=== PATIENT | female | born 1945 | race Caucasian/White ===

== ENCOUNTER 2023-08-01 22:24 | Emergency (ER) | payer MEDICARE ==
--- NOTE | 2023-08-01 22:49 | ED ---
General Adult HPI - General Source: patient Mode of arrival: ambulatory Limitations: no limitations <Dann Hu - Last Filed: 08/01/23 22:48> <Guido Thurston - Last Filed: 08/02/23 02:09> - General Stated complaint: high blood pressure Time Seen by Provider: 08/01/23 22:48 - History of Present Illness Initial comments: 78-year-old female presenting with chief complaint of elevated blood pressure. Patient noted yesterday that she had a bad headache and took her blood pressure and it was above 200. She saw her PCP and was started on a new blood pressure medication. Today the blood pressure has been persistently high. As of right now she only has a slight headache no other symptoms (Dann Hu) 78-year-old female presenting to the ED with a chief complaint of hypertension. Patient states has had ongoing issues with hypertension and saw her PCP today. Was previously on Metoprolol 25 mg daily. This was continued as well as she was added on Lisinopril 20 mg daily, and Hydralazine 25 mg twice daily today. Despite taking this medication today still notes that she has high blood pressure prompting presentation to the ED for further evaluation. Patient does note some slight headache however denies chest pain or shortness of breath. No other complaints at this time. (Guido Thurston) - Related Data Allergies Allergy/AdvReac Type Severity Reaction Status Date / Time Penicillins Allergy Rash/Hives Verified 08/01/23 23:19 codeine AdvReac Nausea & Verified 08/01/23 23:19 Vomiting morphine AdvReac Nausea & Verified 08/01/23 23:19 Vomiting Sulfa (Sulfonamide AdvReac Swelling Verified 08/01/23 23:19 Antibiotics) Review of Systems ROS Other: All systems not noted in ROS Statement are negative. <Dann Hu - Last Filed: 08/01/23 22:48> ROS Other: All systems not noted in ROS Statement are negative. <Guido Thurston - Last Filed: 08/02/23 02:09> ROS Statement: Those systems with pertinent positive or pertinent negative responses have been documented in the HPI. General Exam <Dann Hu - Last Filed: 08/01/23 22:48> General appearance: alert, in no apparent distress Eye exam: Present: normal appearance Neck exam: Present: normal inspection Respiratory exam: Present: normal lung sounds bilaterally Cardiovascular Exam: Present: regular rate, normal rhythm GI/Abdominal exam: Present: soft Neurological exam: Present: alert, oriented X3 Skin exam: Present: warm, dry <Guido Thurston - Last Filed: 08/02/23 02:09> - General Exam Comments Initial Comments: Visual Physical Exam Vital signs reviewed General: Well-appearing, nontoxic, no acute distress. Head: Normocephalic, atraumatic Eyes: PERRLA, EOMI ENT: Airway patent Chest: Nonlabored breathing Skin: No visual rash, normal skin tone Neuro: Alert and oriented 3 Musculoskeletal: No gross abnormalities (Dann Hu) Course Vital Signs 08/01/23 08/02/23 08/02/23 23:20 00:33 01:07 Temperature 98.7 F Pulse Rate 79 77 80 Respiratory 16 14 16 Rate Blood Pressure 198/98 213/144 202/90 O2 Sat by Pulse 95 97 95 Oximetry 08/02/23 08/02/23 01:27 02:06 Temperature Pulse Rate 86 92 Respiratory 16 16 Rate Blood Pressure 173/86 181/81 O2 Sat by Pulse 97 Oximetry Medical Decision Making <Dann Hu - Last Filed: 08/01/23 22:48> - Lab Data Result diagrams: 08/02/23 00:45 08/02/23 00:45 <Guido Thurston - Last Filed: 08/02/23 02:09> - Medical Decision Making I performed the quick note portion of this visit, electronically signed Dann Hu PA-C (Dann Hu) Was pt. sent in by a medical professional or institution ([facility]se, MANAGER GENERATION, urgent care, hospital, or senior care...) When possible be specific @ -No Did you speak to anyone other than the patient for history (EMS, parent, family, police, friend...)? What history was obtained from this source @ -No Did you review nursing and triage notes (agree or disagree)? Why? @ -I reviewed and agree with nursing and triage notes Were old charts reviewed (outside hosp., previous admission, EMS record, old EKG, old radiological studies, urgent care reports/EKG's, senior care records)? Report findings @ -No old charts were reviewed Differential Diagnosis (chest pain, altered mental status, abdominal pain women, abdominal pain men, vaginal bleeding, weakness, fever, dyspnea, syncope, headache, dizziness, GI bleed, back pain, seizure, CVA, palpatations, mental health, musculoskeletal)? @ -Differential Chest Pain: Stable Angina, Unstable Angina, STEMI, NSTEMI Aortic Dissection, Pneumothorax, Musculoskeletal, Esophageal Spasm GERD, Cholecystitis, Pancreatitis, Zoster, this is not meant to be an all-inclusive list. EKG interpreted by me (3pts min.). @ -EKG shows a normal sinus rhythm at 60 bpm with nonspecific changes. ID [id number], QRS 93, QT/QTc 304/371. X-rays interpreted by me (1pt min.). @ -None done CT interpreted by me (1pt min.). @ -None done U/S interpreted by me (1pt. min.). @ -None done What testing was considered but not performed or refused? (CT, X-rays, U/S, labs)? Why? @ -None What meds were considered but not given or refused? Why? @ -None Did you discuss the management of the patient with other professionals (professionals i.e. , PA, MANAGER GENERATION, lab, RT, psych nurse, social work instructor, sheep or calf grader, teacher, chief operating officer, case management coordinator)? Give summary @ -No Was smoking cessation discussed for >3mins.? @ -No Was critical care preformed (if so, how long)? @ -No Were there social determinants of health that impacted care today? How? (Homelessness, low income, unemployed, alcoholism, drug addiction, transportation, low edu. Level, literacy, decrease access to med. care, retirement, rehab)? @ -No Was there de-escalation of care discussed even if they declined (Discuss DNR or withdrawal of care, Hospice)? DNR status @ -No What co-morbidities impacted this encounter? (DM, HTN, Smoking, COPD, CAD, Cancer, CVA, ARF, Chemo, Hep., AIDS, mental health diagnosis, sleep apnea, mo rbid obesity)? @ -Hypertension Was patient admitted / discharged? Hospital course, mention meds given and route, prescriptions, significant lab abnormalities, going to OR and other pertinent info. @ -Discharge Laboratory studies reviewed. CBC largely unremarkable. Chemistry panel did show some hypokalemia at 3.1. This was repleted. UA does show some evidence of infection with large leukocyte Estrace, and 65 white blood cells however nitrite s negative. At this time patient is not having any UTI symptoms however does note recent admission at outside hospital secondary to UTI causing altered mental status. Therefore patient provided prescription for Keflex. EKG at this time showed a normal sinus rhythm without acute changes. Vital signs do show some hypertension however otherwise stable. Discharged home in stable condition advised close follow-up with her PCP. Discussed return precautions with patient and family verbalized agreement. Undiagnosed new problem with uncertain prognosis? @ -No Drug Therapy requiring intensive monitoring for toxicity (Heparin, Nitro, Insulin, Cardizem)? @ -No Were any procedures done? @ -No Diagnosis/symptom? @ -Hypertension Acute, or Chronic, or Acute on Chronic? @ -Acute Uncomplicated (without systemic symptoms) or Complicated (systemic symptoms)? @ -Uncomplicated Side effects of treatment? @ -No Exacerbation, Progression, or Severe Exacerbation? @ -No Poses a threat to life or bodily function? How? (Chest pain, [place], [place], pneumonia, PE, COPD, DKA, ARF, appy, cholecystitis, CVA, Diverticulitis, Homicidal, Suicidal, threat to staff... and all critical care pts) @ -No (Guido Thurston) - Lab Data Lab Results 08/02/23 08/02/23 08/02/23 Range/Units 00:45 00:45 00:45 WBC 8.4 (3.8-10.6) k/uL RBC 4.18 (3.80-5.40) m/uL Hgb 12.9 (11.4-16.0) gm/dL Hct 37.8 (34.0-46.0) % MCV 90.3 (80.0-100.0) fL MCH 30.8 (25.0-35.0) pg MCHC 34.1 (31.0-37.0) g/dL RDW 12.2 (11.5-15.5) % Plt Count 265 (150-450) k/uL MPV 7.7 Neutrophils % 67 % Lymphocytes % 20 % Monocytes % 7 % Eosinophils % 2 % Basophils % 1 % Neutrophils # 5.7 (1.3-7.7) k/uL Lymphocytes # 1.7 (1.0-4.8) k/uL Monocytes # 0.6 (0-1.0) k/uL Eosinophils # 0.2 (0-0.7) k/uL Basophils # 0.1 (0-0.2) k/uL Sodium 139 (137-145) mmol/L Potassium 3.1 L (3.5-5.1) mmol/L Chloride 105 (98-107) mmol/L Carbon Dioxide 27 (22-30) mmol/L Anion Gap 7 mmol/L BUN 23 H (7-17) mg/dL Creatinine 0.83 (0.52-1.04) mg/dL Est GFR (CKD-EPI)AfAm 79 (>60 ml/min/1.73 sqM) Est GFR (CKD-EPI)NonAf 69 (>60 ml/min/1.73 sqM) Glucose 92 (74-99) mg/dL Calcium 9.2 (8.4-10.2) mg/dL Total Bilirubin 0.6 (0.2-1.3) mg/dL AST 27 (14-36) U/L ALT 23 (4-34) U/L Alkaline Phosphatase 63 (38-126) U/L Troponin I 0.013 (0.000-0.034) ng/mL Total Protein 6.2 L (6.3-8.2) g/dL Albumin 3.9 (3.5-5.0) g/dL Urine Color Urine Appearance (Clear) Urine pH (5.0-8.0) Ur Specific [place] (1.001-1.035) Urine Protein (Negative) Urine Glucose (UA) (Negative) Urine Ketones (Negative) Urine Blood (Negative) Urine Nitrite (Negative) Urine Bilirubin (Negative) Urine Urobilinogen (<2.0) mg/dL Ur Leukocyte Esterase (Negative) Urine RBC (0-5) /hpf Urine WBC (0-5) /hpf Ur Squamous Epith Cells (0-4) /hpf Urine Bacteria (None) /hpf Urine Mucus (None) /hpf 08/02/23 Range/Units 01:41 WBC (3.8-10.6) k/uL RBC (3.80-5.40) m/uL Hgb (11.4-16.0) gm/dL Hct (34.0-46.0) % MCV (80.0-100.0) fL MCH (25.0-35.0) pg MCHC (31.0-37.0) g/dL RDW (11.5-15.5) % Plt Count (150-450) k/uL MPV Neutrophils % % Lymphocytes % % Monocytes % % Eosinophils % % Basophils % % Neutrophils # (1.3-7.7) k/uL Lymphocytes # (1.0-4.8) k/uL Monocytes # (0-1.0) k/uL Eosinophils # (0-0.7) k/uL Basophils # (0-0.2) k/uL Sodium (137-145) mmol/L Potassium (3.5-5.1) mmol/L Chloride (98-107) mmol/L Carbon Dioxide (22-30) mmol/L Anion Gap mmol/L BUN (7-17) mg/dL Creatinine (0.52-1.04) mg/dL Est GFR (CKD-EPI)AfAm (>60 ml/min/1.73 sqM) Est GFR (CKD-EPI)NonAf (>60 ml/min/1.73 sqM) Glucose (74-99) mg/dL Calcium (8.4-10.2) mg/dL Total Bilirubin (0.2-1.3) mg/dL AST (14-36) U/L ALT (4-34) U/L Alkaline Phosphatase (38-126) U/L Troponin I (0.000-0.034) ng/mL Total Protein (6.3-8.2) g/dL Albumin (3.5-5.0) g/dL Urine Color Colorless Urine Appearance Clear (Clear) Urine pH 6.0 (5.0-8.0) Ur Specific [place] 1.009 (1.001-1.035) Urine Protein Negative (Negative) Urine Glucose (UA) Negative (Negative) Urine Ketones 1+ H (Negative) Urine Blood Trace H (Negative) Urine Nitrite Negative (Negative) Urine Bilirubin Negative (Negative) Urine Urobilinogen <2.0 (<2.0) mg/dL Ur Leukocyte Esterase Large H (Negative) Urine RBC 5 (0-5) /hpf Urine WBC 65 H (0-5) /hpf Ur Squamous Epith Cells 1 (0-4) /hpf Urine Bacteria Rare H (None) /hpf Urine Mucus Rare H (None) /hpf Disposition <Dann Hu - Last Filed: 08/01/23 22:48> Is patient prescribed a controlled substance at d/c from ED?: No Time of Disposition: 02:09 <Guido Thurston - Last Filed: 08/02/23 02:09> Clinical Impression: HTN (hypertension) Disposition: HOME SELF-CARE Condition: Good Additional Instructions: Please return to the Emergency Department if symptoms worsen or any other concerns. Please follow-up with your PCP Referrals: Virginie Conte MD [Primary Care Provider] - 1-2 days
[2023-08-01 23:39] VITALS: TEMP 98.7
[2023-08-02] MEDS: hydrALAZINE HCL 20 MG/ML 1 ML VIAL IVP STA (01:04)
[2023-08-02 01:07] LABS: Basophils # (A) 0.1 k/uL (0-0.2); Basophils % (A) 1 %; Eosinophils # (A) 0.2 k/uL (0-0.7); Eosinophils % (A) 2 %; HCT 37.8 % (34.0-46.0); HGB 12.9 gm/dL (11.4-16.0); Lymphocytes # (A) 1.7 k/uL (1.0-4.8); Lymphocytes % (A) 20 %; MCH 30.8 pg (25.0-35.0); MCHC 34.1 g/dL (31.0-37.0); MCV 90.3 fL (80.0-100.0); Mean Platelet Volume 7.7; Monocytes # (A) 0.6 k/uL (0-1.0); Monocytes % (A) 7 %; Neutrophils # (A) 5.7 k/uL (1.3-7.7); Neutrophils % (A) 67 %; Platelet Count 265 k/uL (150-450); RBC 4.18 m/uL (3.80-5.40); RDW 12.2 % (11.5-15.5); WBC 8.4 k/uL (3.8-10.6)
[2023-08-02 01:26] LABS: ALT 23 U/L (4-34); AST 27 U/L (14-36); African American GFR (CKD) 79 (>60 ml/min/1.73 sqM); Albumin 3.9 g/dL (3.5-5.0); Alkaline Phosphatase 63 U/L (38-126); Anion Gap 7 mmol/L; Blood Urea Nitrogen 23 mg/dL (7-17); Calcium 9.2 mg/dL (8.4-10.2); Carbon Dioxide 27 mmol/L (22-30); Chloride 105 mmol/L (98-107); Glucose 92 mg/dL (74-99); Non-African American GFR(CKD) 69 (>60 ml/min/1.73 sqM); Potassium 3.1 mmol/L (3.5-5.1); Sodium 139 mmol/L (137-145); Total Bilirubin 0.6 mg/dL (0.2-1.3); Total Protein 6.2 g/dL (6.3-8.2)
[2023-08-02 01:29] VITALS: RESP 16
[2023-08-02 01:48] LABS: Appearance,Urine Clear (Clear); Bacteria,Urine Rare /hpf; Bilirubin,Urine Negative (Negative); Blood,Urine Trace (Negative); Color,Urine Colorless; Glucose,Urine (UA) Negative (Negative); Ketones,Urine 1+ (Negative); Leukocyte Esterase,Urine Large (Negative); Mucus,Urine Rare /hpf; Nitrite,Urine Negative (Negative); Protein,Urine Negative (Negative); RBC,Urine 5 /hpf (0-5); Specific Gravity,Urine 1.009 (1.001-1.035); Squamous Epithelial Cell,Urine 1 /hpf (0-4); Urobilinogen,Urine <2.0 mg/dL (<2.0); WBC,Urine 65 /hpf (0-5)
[2023-08-02] MEDS: ACETAMINOPHEN TAB 500 MG TAB PO STA (02:22)
[2023-08-02] MEDS: POTASSIUM CHLORIDE ER 20 MEQ TAB.ER PO STA (02:25)
[2023-08-02] MEDS: LABETALOL 5 MG/ML VIAL MDV IVP STA (02:59)
[2023-08-02 03:54] VITALS: BP 175/90; PULSE 80
== END 2023-08-02 03:31 | disposition home or self-care (01) ==
LOC: EC 22:24
DX: I10 Essential (primary) hypertension (principal); Z88.0 Allergy status to penicillin; Z88.5 Allergy status to narcotic agent; Z88.2 Allergy status to sulfonamides
CPT/HCPCS: 36415; 93005; 80053; 84484; 85025; 81001; 96374; 96375; 99284; J0360; J1920

== ENCOUNTER 2023-08-03 09:54 | Inpatient (IN) | payer MEDICARE, OTHER ==
--- NOTE | 2023-08-03 10:27 | ED ---
Recheck HPI - General Chief Complaint: Recheck/Abnormal Lab/Rx Stated Complaint: Elevated BP Time Seen by Provider: 08/03/23 10:26 Source: patient, RN notes reviewed, old records reviewed Mode of arrival: ambulatory Limitations: no limitations - History of Present Illness Initial Comments: Patient is a 78-year-old female presented to ER with chief complaint of hypertension and headache. Patient recently seen here for similar complaint and received IV medications with improvement of blood pressure. Patient followed up with PCP yesterday and had medication changes. She is currently taking hydralazine 50 mg 3 times a day, lisinopril 25 mg twice daily and metoprolol succinate ER 50 mg once daily. She states last night she took her blood pressure as instructed before going to bed and it was found to be elevated about 180s over 90s. Patient states she was feeling normal at that time. Patient took her blood pressure this morning prior to medications and it was 203/80s. She states she took her medication and waited 40 minutes repeated her blood pressure and it was 230s/100s. Which brought her to the ER. She also endorses a headache that has been going on for a a while. Denies any dizziness, lightheadedness, chest pain, shortness of breath, abdominal pain, peripheral edema. - Related Data Home Medications Medication Instructions Recorded Confirmed Aspirin 81 mg PO DAILY 08/03/23 08/03/23 Cholecalciferol (Vitamin D3) 75 mcg PO DAILY 08/03/23 08/03/23 [Vitamin D3 (3000 Iu)] Cyanocobalamin (Vitamin B-12) 1,000 mcg PO DAILY 08/03/23 08/03/23 [Vitamin B-12] DULoxetine HCL [Cymbalta] 30 mg PO BID 08/03/23 08/03/23 Levothyroxine Sodium [Synthroid] 75 mcg PO DAILY 08/03/23 08/03/23 Metoprolol Succinate (ER) [Toprol 25 mg PO DAILY 08/03/23 08/03/23 Xl] Simvastatin [Zocor] 40 mg PO HS 08/03/23 08/03/23 hydrALAZINE HCL [Apresoline] 50 mg PO TID@0800,1400,1800 08/03/23 08/03/23 lisinopriL [Prinivil] 20 mg PO BID 08/03/23 08/03/23 Previous Rx's Medication Instructions Recorded Nitrofurantoin Monohyd/M-Cryst 100 mg PO Q12HR 5 Days #10 cap 08/03/23 [Macrobid] Allergies Allergy/AdvReac Type Severity Reaction Status Date / Time Penicillins Allergy Rash/Hives Verified 08/03/23 11:50 codeine AdvReac Nausea & Verified 08/03/23 11:50 Vomiting morphine AdvReac Nausea & Verified 08/03/23 11:50 Vomiting Sulfa (Sulfonamide AdvReac Swelling Verified 08/03/23 11:50 Antibiotics) Review of Systems ROS Statement: Those systems with pertinent positive or pertinent negative responses have been documented in the HPI. ROS Other: All systems not noted in ROS Statement are negative. Past Medical History Past Medical History: Hyperlipidemia, Hypertension, No Reported History, Thyroid Disorder History of Any Multi-Drug Resistant Organisms: None Reported Past Surgical History: Bladder Surgery, Cholecystectomy, Hysterectomy, Orthopedic Surgery Past Psychological History: Depression Smoking Status: Never smoker Past Alcohol Use History: Rare Past Drug Use History: None Reported General Exam Limitations: no limitations General appearance: alert, in no apparent distress Head exam: Present: atraumatic, normocephalic, normal inspection Eye exam: Present: normal appearance, PERRL, EOMI. Absent: scleral icterus, conjunctival injection, periorbital swelling Pupils: Present: normal accommodation ENT exam: Present: normal exam, normal oropharynx, mucous membranes moist Neck exam: Present: normal inspection. Absent: tenderness, meningismus, lymphadenopathy Respiratory exam: Present: normal lung sounds bilaterally. Absent: respiratory distress, wheezes, rales, rhonchi, stridor Cardiovascular Exam: Present: regular rate, normal rhythm, normal heart sounds. Absent: systolic murmur, diastolic murmur, rubs, gallop, clicks Extremities exam: Present: normal inspection, full ROM, normal capillary refill. Absent: tenderness, pedal edema, joint swelling, calf tenderness Neurological exam: Present: alert, oriented X3, CN II-XII intact Psychiatric exam: Present: normal affect, normal mood Skin exam: Present: warm, dry, intact, normal color. Absent: rash Course Vital Signs 08/03/23 08/03/23 08/03/23 09:55 10:26 11:26 Temperature 98.6 F Pulse Rate 99 84 Respiratory 18 18 Rate Blood Pressure 184/98 178/93 209/96 O2 Sat by Pulse 95 96 Oximetry 08/03/23 08/03/23 08/03/23 12:40 12:47 13:00 Temperature Pulse Rate 83 80 Respiratory 18 18 Rate Blood Pressure 198/87 198/87 O2 Sat by Pulse 96 96 98 Oximetry 08/03/23 08/03/23 08/03/23 13:30 14:00 15:12 Temperature Pulse Rate 78 80 81 Respiratory 18 18 16 Rate Blood Pressure 212/92 212/97 185/88 O2 Sat by Pulse 98 97 Oximetry 08/03/23 08/03/23 17:32 18:04 Temperature Pulse Rate 84 91 Respiratory 18 16 Rate Blood Pressure 199/91 181/87 O2 Sat by Pulse 96 97 Oximetry - Reevaluation(s) Reevaluation #1: 08/03/23 12:27 Upon reevaluation, results were discussed with patient. Patient's family refused discharge as her BP was elevated. Reevaluation #2: 08/03/23 14:[address] Alanis from [facility] accepted medical admission. Medical Decision Making - Medical Decision Making Was pt. sent in by a medical professional or institution (, PA, DIRECTOR OF CORPORATE SPONSORSHIPS, urgent care, hospital, or long-term...) When possible be specific @ -No Did you speak to anyone other than the patient for history (EMS, parent, family, police, friend...)? What history was obtained from this source @ -No Did you review nursing and triage notes (agree or disagree)? Why? @ -I reviewed and agree with nursing and triage notes Were old charts reviewed (outside hosp., previous admission, EMS record, old EKG, old radiological studies, urgent care reports/EKG's, long-term records)? Report findings @ -Yes I reviewed old charts from 08-02-2023 patient seen here for hypertension. Patient received IV labetalol and hydralazine with improvement of blood pressu re. Differential Diagnosis (chest pain, altered mental status, abdominal pain women, abdominal pain men, vaginal bleeding, weakness, fever, dyspnea, syncope, headache, dizziness, GI bleed, back pain, seizure, CVA, palpatations, mental health, musculoskeletal)? @ -Differential Chest Pain: Stable Angina, Unstable Angina, STEMI, NSTEMI Aortic Dissection, Pneumothorax, Musculoskeletal, Esophageal Spasm GERD, Cholecystitis, Pancreatitis, Zoster, this is not meant to be an all-inclusive list. EKG interpreted by me (3pts min.). @ -As above X-rays interpreted by me (1pt min.). @ -None done CT interpreted by me (1pt min.). @ -CT brain interpreted by me negative for acute process. U/S interpreted by me (1pt. min.). @ -None done What testing was considered but not performed or refused? (CT, X-rays, U/S, labs)? Why? @ -None What meds were considered but not given or refused? Why? @ -None Did you discuss the management of the patient with other professionals (professionals i.e. DrJohn, PA, DIRECTOR OF CORPORATE SPONSORSHIPS, lab, RT, psych nurse, social insurance specialist, parlor chaperone, teacher, radiation officer, case planner)? Give summary @ -Yes, case disucssed with Dr. Alanis who accepts medical admission. Was smoking cessation discussed for >3mins.? @ -No Was critical care preformed (if so, how long)? @ -No Were there social determinants of health that impacted care today? How? (Homelessness, low income, unemployed, alcoholism, drug addiction, transportation, low edu. Level, literacy, decrease access to med. care, half-way, rehab)? @ -No Was there de-escalation of care discussed even if they declined (Discuss DNR or withdrawal of care, Hospice)? DNR status @ -No What co-morbidities impacted this encounter? (DM, HTN, Smoking, COPD, CAD, Cancer, CVA, ARF, Chemo, Hep., AIDS, mental health diagnosis, sleep apnea, morbid obesity)? @ -Hypothyroid, hypertension Was patient admitted / discharged? Hospital course, mention meds given and route, prescriptions, significant lab abnormalities, going to OR and other pertinent info. @ -Admitted. Patient is a 78-year-old female presented to the ER with a chief complaint of hypertension and headache. Patient was recently seen here on 08-02-2023 for similar complaint. Patient followed up with primary care and had antihypertensive medication changes yesterday. History and physical exam completed. Patient's blood pressure upon arrival was 198/87. Patient in no signs of acute distress upon examination. Nontoxic-appearing. No acute neurological findings on exam. Due to patient having a headache CT was performed which was negative for acute process. EKG showed sinus rhythm with no acute evidence of infarct or ischemia. I discussed findings with patient and family member, at bedside. I advised outpatient follow-up and for patient to continue prescribed medications. At discharge, patient blood pressure was found to be 198/87 all other vital signs in acceptable range. Family member refused discharge as she will go home and her blood pressure will remain elevated. Family member stated they would like admission. At that time labs were obtained which are unimpressive. Patient did receive IV 10 mg hydralazine. I discussed this case with Dr. Alanis, [facility], who accepts medical admission. Cardiology on consult. I discussed plan of care with patient and family member, at bedside. They are in agreement with admission. Patient will be admitted for further man agement. Undiagnosed new problem with uncertain prognosis? @ -No Drug Therapy requiring intensive monitoring for toxicity (Heparin, Nitro, Insulin, Cardizem)? @ -No Were any procedures done? @ -No Diagnosis/symptom? @ -Uncontrolled hypertension/headache Acute, or Chronic, or Acute on Chronic? @ -Acute Uncomplicated (without systemic symptoms) or Complicated (systemic symptoms)? @ -Uncomplicated Side effects of treatment? @ -No Exacerbation, Progression, or Severe Exacerbation? @ -No Poses a threat to life or bodily function? How? (Chest pain, [place], [place], pneumonia, PE, COPD, DKA, ARF, appy, cholecystitis, CVA, Diverticulitis, Homicidal, Suicidal, threat to staff... and all critical care pts) @ -No - Lab Data Result diagrams: 08/03/23 12:07 08/03/23 12:07 Lab Results 08/03/23 08/03/23 08/03/23 Range/Units 12:07 12:07 12:07 WBC 10.0 (3.8-10.6) k/uL RBC 4.63 (3.80-5.40) m/uL Hgb 14.1 (11.4-16.0) gm/dL Hct 41.6 (34.0-46.0) % MCV 89.9 (80.0-100.0) fL MCH 30.5 (25.0-35.0) pg MCHC 34.0 (31.0-37.0) g/dL RDW 12.7 (11.5-15.5) % Plt Count 308 (150-450) k/uL MPV 7.4 Sodium 142 (137-145) mmol/L Potassium 4.3 (3.5-5.1) mmol/L Chloride 108 H (98-107) mmol/L Carbon Dioxide 26 (22-30) mmol/L Anion Gap 8 mmol/L BUN 18 H (7-17) mg/dL Creatinine 0.82 (0.52-1.04) mg/dL Est GFR (CKD-EPI)AfAm 80 (>60 ml/min/1.73 sqM) Est GFR (CKD-EPI)NonAf 69 (>60 ml/min/1.73 sqM) Glucose 100 H (74-99) mg/dL Calcium 9.4 (8.4-10.2) mg/dL Total Bilirubin 0.7 (0.2-1.3) mg/dL AST 27 (14-36) U/L ALT 22 (4-34) U/L Alkaline Phosphatase 69 (38-126) U/L Total Protein 6.7 (6.3-8.2) g/dL Albumin 4.3 (3.5-5.0) g/dL TSH 2.030 (0.465-4.680) mIU/L - EKG Data -: EKG Interpreted by Me EKG Comments: EKG taken at 10: 21 shows normal sinus rhythm with no acute ST segment or T wave abnormalities. Ventricular rate 89, KS interval 131, QRS duration 80, QT/QTc 347/394. Artificat in -VIII. - Radiology Data Radiology results: report reviewed, image reviewed Disposition Clinical Impression: HTN (hypertension), Headache, UTI (urinary tract infection) Disposition: ADMITTED IP TO THIS HOSP Condition: Fair Is patient prescribed a controlled substance at d/c from ED?: No Time of Disposition: 14:10
--- NOTE | 2023-08-03 11:01 | CT ---
EXAMINATION TYPE: CT brain wo con CT DLP: 1050.3 mGycm, Automated exposure control for dose reduction was used. DATE OF EXAM: 08/03/2023 10:49 AM COMPARISON: None. CLINICAL INDICATION:Female, 78 years old with history of headache, Headache TECHNIQUE: Brain: Axial CT images of the brain were obtained with coronal and sagittal reformats created and rev iewed. Contrast used: None. Oral contrast used: None. FINDINGS: Brain: Extra-axial spaces: No abnormal extra-axial fluid collections. Ventricular system: Dilatation in proportion to cerebral atrophy. Cerebral parenchyma: Cerebral atrophy. No acute intraparenchymal hemorrhage or mass effect. The mike -white junction is well differentiated. Scattered hypoattenuating areas are seen within the white mat ter. Cerebellum: Unremarkable. Mass effect: No evidence of midline shift. Intracranial vasculature: Atherosclerotic calcifications of the intracranial vessels. Soft tissues: Normal. Calvarium/osseous structures: No depressed skull fracture. Paranasal sinuses and mastoid air cells: Mild scattered paranasal sinus disease. Visualized orbits: Bilateral aphakia IMPRESSION: 1. No acute intracranial process. 2. Nonspecific white matter changes, likely secondary to chronic small vessel ischemic disease.
[2023-08-03] MEDS: hydrALAZINE HCL 20 MG/ML 1 ML VIAL IVP STA (12:03)
[2023-08-03 12:29] LABS: ALT 22 U/L (4-34); AST 27 U/L (14-36); African American GFR (CKD) 80 (>60 ml/min/1.73 sqM); Albumin 4.3 g/dL (3.5-5.0); Alkaline Phosphatase 69 U/L (38-126); Anion Gap 8 mmol/L; Blood Urea Nitrogen 18 mg/dL (7-17); Calcium 9.4 mg/dL (8.4-10.2); Carbon Dioxide 26 mmol/L (22-30); Chloride 108 mmol/L (98-107); Glucose 100 mg/dL (74-99); HCT 41.6 % (34.0-46.0); HGB 14.1 gm/dL (11.4-16.0); MCH 30.5 pg (25.0-35.0); MCV 89.9 fL (80.0-100.0); Mean Platelet Volume 7.4; Non-African American GFR(CKD) 69 (>60 ml/min/1.73 sqM); Platelet Count 308 k/uL (150-450); Potassium 4.3 mmol/L (3.5-5.1); RBC 4.63 m/uL (3.80-5.40); RDW 12.7 % (11.5-15.5); Sodium 142 mmol/L (137-145); Total Bilirubin 0.7 mg/dL (0.2-1.3); Total Protein 6.7 g/dL (6.3-8.2)
[2023-08-03] MEDS ORDERED: NALOXONE 0.4 MG/ML 1 ML VIAL IV PRN (14:11)
[2023-08-03] MEDS: hydrALAZINE HCL 20 MG/ML 1 ML VIAL IVP SCH (14:33)
[2023-08-03] MEDS: ACETAMINOPHEN TAB 325 MG TAB PO PRN (15:16)
[2023-08-03] MEDS: NITROFURANTOIN MONOHYD/M-CRYST 100 MG CAP PO STA (16:14)
[2023-08-03] MEDS: ONDANSETRON 4 MG/2 ML VIAL IVP PRN (19:50)
[2023-08-03] MEDS: KETOROLAC 15 MG/ML 1 ML VIAL IVP PRN (19:51)
[2023-08-03] MEDS: FAMOTIDINE 20 MG TAB PO SCH (20:56)
[2023-08-03] MEDS: ACETAMINOPHEN IV (For NPO) 1,000 MG in EMPTY BAG 1 BAG IVPB PRN (20:57)
[2023-08-03] MEDS: LORazepam 2 MG/ML INJ IV PRN (22:39)
[2023-08-04] MEDS: lisinopriL 20 MG TAB PO SCH (11:54)
[2023-08-04] MEDS: CHLORTHALIDONE 25 MG TAB PO SCH (11:54)
--- NOTE | 2023-08-04 13:12 | P.HPIM ---
History of Present Illness This is a pleasant 78 years old female with past medical history of hypertension and hyperlipidemia Who presents because of severe headache for the last 2 to 3 days associated with uncontrolled high blood pressure. Her headache is all over was very bad and severe on admission, currently feels better/10, no obvious precipitating or relieving factors No associated blurred vision, no weakness numbness or tingling in face, arms or legs. No neck stiffness, no dizziness. But patient feels drowsy and she is still complaining from headache. Despite better control of her blood pressure. Patient has been told she has UTI but patient currently denies any urinary symptoms and feels like normal for her, no dysuria or change in frequency or urgency. No abdominal pain vomiting or diarrhea. No chest pain or dyspnea or coughing. She denies smoking alcohol or illicit drugs. On admission her blood pressure was elevated 212/97, currently 173/78. Temperature was 99.7. Heart rate was slightly elevated 101. CBC, BMP and liver enzymes were reviewed and were unremarkable TSH 2.0 CT of the brain is negative for acute process EKG showing sinus rhythm at [address]-T changes. Patient currently on Norvasc 5 mg at bedside, chlorthalidone 25 mg daily, lisinopril 40 mg daily. She received 1 dose of nitrofurantoin that was stopped. She is getting Ativan as needed which might contribute to her drowsiness. Review of Systems Review of systems CONSTITUTIONAL: No fever, no malaise, no fatigue. HEENT: No recent visual problems or hearing problems. Denied any sore throat. CARDIOVASCULAR: No orthopnea, PND, no palpitations, no syncope. PULMONARY: No shortness of breath, no cough, no hemoptysis. GASTROINTESTINAL: No diarrhea, no nausea, no vomiting, no abdominal pain. Normoactive bowel sounds. NEUROLOGICAL: No headaches, no weakness, no numbness. HEMATOLOGICAL: Denies any bleeding or petechiae. GENITOURINARY: Denies any burning micturition, frequency, or urgency. MUSCULOSKELETAL/RHEUMATOLOGICAL: Denies any joint pain, swelling, or any muscle pain. ENDOCRINE: Denies any polyuria or polydipsia. Past Medical History Past Medical History: Hyperlipidemia, Hypertension, No Reported History, Thyroid Disorder History of Any Multi-Drug Resistant Organisms: None Reported Past Surgical History: Bladder Surgery, Cholecystectomy, Hysterectomy, Orthopedic Surgery Past Psychological History: Depression Smoking Status: Never smoker Past Alcohol Use History: Rare Past Drug Use History: None Reported Medications and Allergies Home Medications Medication Instructions Recorded Confirmed Type Aspirin 81 mg PO DAILY 08/03/23 08/03/23 History Cholecalciferol (Vitamin D3) 75 mcg PO DAILY 08/03/23 08/03/23 History [Vitamin D3 (3000 Iu)] Cyanocobalamin (Vitamin B-12) 1,000 mcg PO DAILY 08/03/23 08/03/23 History [Vitamin B-12] DULoxetine HCL [Cymbalta] 30 mg PO BID 08/03/23 08/03/23 History Levothyroxine Sodium [Synthroid] 75 mcg PO DAILY 08/03/23 08/03/23 History Metoprolol Succinate (ER) [Toprol 25 mg PO DAILY 08/03/23 08/03/23 History Xl] Nitrofurantoin Monohyd/M-Cryst 100 mg PO Q12HR 5 Days #10 cap 08/03/23 Rx [Macrobid] Simvastatin [Zocor] 40 mg PO HS 08/03/23 08/03/23 History hydrALAZINE HCL [Apresoline] 50 mg PO TID@0800,1400,1800 08/03/23 08/03/23 History lisinopriL [Prinivil] 20 mg PO BID 08/03/23 08/03/23 History Allergies Allergy/AdvReac Type Severity Reaction Status Date / Time Penicillins Allergy Rash/Hives Verified 08/03/23 11:50 codeine AdvReac Nausea & Verified 08/03/23 11:50 Vomiting morphine AdvReac Nausea & Verified 08/03/23 11:50 Vomiting Sulfa (Sulfonamide AdvReac Swelling Verified 08/03/23 11:50 Antibiotics) Physical Exam Vitals: Vital Signs Temp Pulse Pulse Resp BP BP Pulse Ox 08/04/23 06:44 140/66 08/04/23 03:36 90 16 183/83 92 L 08/04/23 00:00 101 H 16 185/97 93 L 08/03/23 21:20 175/77 08/03/23 20:35 98.1 F 89 16 199/93 96 08/03/23 19:42 88 18 191/101 98 08/03/23 18:04 91 16 181/87 97 02/23/24 17:32 84 18 199/91 96 08/03/23 15:12 81 16 185/88 08/03/23 14:00 80 18 212/97 97 08/03/23 13:30 78 18 212/92 98 08/03/23 13:00 80 18 198/87 98 08/03/23 12:47 83 18 198/87 96 08/03/23 12:40 96 08/03/23 11:26 84 18 209/96 96 08/03/23 10:26 178/93 08/03/23 09:55 98.6 F 99 18 184/98 95 Intake and Output 08/03/23 08/04/23 08/04/23 22:59 06:59 14:59 Intake Total 540 540 Balance 540 540 Intake: Oral 540 540 Other: Voiding Method Toilet Toilet # Voids 1 1 GENERAL: The patient is alert and oriented x3, not in any acute distress. Well developed, well nourished. HEENT: Pupils are round and equally reacting to light. EOMI. No scleral icterus. No conjunctival pallor. Normocephalic, atraumatic. No pharyngeal erythema. No thyromegaly. CARDIOVASCULAR: S1 and S2 present. No murmurs, rubs, or gallops. PULMONARY: Chest is clear to auscultation, no wheezing , no crackles. ABDOMEN: Soft, nontender, nondistended, normoactive bowel sounds. No palpable organomegaly. MUSCULOSKELETAL: No joint swelling or deformity. EXTREMITIES: No cyanosis, clubbing, or pedal edema. NEUROLOGICAL: Gross neurological examination did not reveal any focal deficits. SKIN: No rashes. no petechiae. Results CBC & Chem 7: 08/03/23 12:07 08/03/23 12:07 Labs: Abnormal Lab Results - Last 24 Hours (Table) 08/03/23 Range/Units 12:07 Chloride 108 H (98-107) mmol/L BUN 18 H (7-17) mg/dL Glucose 100 H (74-99) mg/dL Thrombosis Risk Factor Assmnt - Choose All That Apply Any of the Below Risk Factors Present?: No Assessment and Plan Assessment: Severe headache, present on admission Hypertension urgency, present on admission, currently better controlled Hypothyroidism Hyperlipidemia Plan: Continue with current antihypertensive medication Norvasc, chlorthalidone and lisinopril Cards consult on the case Neurology evaluation is requested Labs and medication were reviewed.. Continue same treatment. Continue with symptomatic treatment. Resume home medication. Monitor labs and vitals. DVT and GI prophylaxis. Further recommendations as per clinical course of the patient DVT prophylaxis: Subcutaneous heparin GI Prophylaxis: Pepcid Prognosis is guarded
--- NOTE | 2023-08-04 13:26 | P.CRDCN ---
History of Present Illness Consult date: 08/04/23 Consult reason: hypertension History of present illness: This is Ethan Valenzuela NP, I'm dictating on behalf of Dr. Aranda's H&P and A&P The patient was interviewed and examined. HPI: Patient is a pleasant 78-year-old female with a past medical history that includes hypertension, vitamin B12 deficiency, hyperlipidemia, and depression who presents to the hospital for complaints of hypertension. Patient and family report that the patient was recently seen by her primary care provider who increased her lisinopril and started her on oral hydralazine for increased blood pressures. Patient reports that at home she continued to check her blood pressures with little to no change, in fact states that her blood pressure continued to increase. She was experiencing headaches with no reports of blurry vision, near syncope, chest pain, shortness of breath, or leg swelling. Due to her continued elevated blood pressure she came to the hospital for evaluation. In the emergency department the patient was found to have significant elevated blood pressures in the 180s over 90s, with occasional 200/90. Patient was started on IV hydralazine and admitted to the hospital for further evaluation. Upon examination, the patient continues to report having a bad headache. She otherwise denies blurry vision, near syncope, chest pain, shortness of breath, leg swelling. ROS: [No fever, chills, or rigors] [no cough, phlegm, or expectoration] [no nausea, vomiting, or diarrhea] [no hematuria, dysuria] [Patient complains of a headache] [no strokes or seizures] [no skin lesions] EXAMINATION: GENERAL: Well-appearing, well-nourished and in no acute distress. NECK: Supple without JVD or thyromegaly. LUNGS: Breath sounds clear to auscultation bilaterally. Respiration equal and unlabored. No wheezes, rales or rhonchi. HEART: Regular rate and rhythm without murmurs, rubs or gallops. S1 and S2 heard. EXTREMITIES: Normal range of motion, no edema. No clubbing or cyanosis. Peripheral pulses intact and strong. REVIEW OF LABS, ECG & MEDICAL DATA: LABS: White count 10, hemoglobin 14.1, platelets 308, sodium 142, potassium 4.3, BUN 18, creatinine 0.82, TSH 2.03 EKG: Normal sinus rhythm with occasional PVCs IMAGING: CT of the brain without contrast dated 08/03/2023 demonstrates no acute intracranial process, nonspecific white matter changes, likely secondary to chronic small vessel ischemic disease. VITALS: Temp 98.3, pulse 97, blood pressure 165/71, O2 saturation 92% on room air IMPRESSION: 1. Accelerated hypertension 2. Hyperlipidemia 3. Headache, likely secondary to hypertension. PLAN: Start chlorthalidone 25 mg daily. Start amlodipine 5 mg at bedtime. Discontinue IV hydralazine. Start lisinopril 20 mg twice daily. Check serum metanephrines and serum cortisol level. Continue to monitor blood pressure. Further recommendations based on patient's clinical course. Thank you for the consult and allowing us to participate in the care of this patient. Past Medical History Past Medical History: Hyperlipidemia, Hypertension, No Reported History, Thyroid Disorder History of Any Multi-Drug Resistant Organisms: None Reported Past Surgical History: Bladder Surgery, Cholecystectomy, Hysterectomy, Orthopedic Surgery Past Psychological History: Depression Smoking Status: Never smoker Past Alcohol Use History: Rare Past Drug Use History: None Reported Medications and Allergies Home Medications Medication Instructions Recorded Confirmed Type Aspirin 81 mg PO DAILY 08/03/23 08/03/23 History Cholecalciferol (Vitamin D3) 75 mcg PO DAILY 08/03/23 08/03/23 History [Vitamin D3 (3000 Iu)] Cyanocobalamin (Vitamin B-12) 1,000 mcg PO DAILY 08/03/23 08/03/23 History [Vitamin B-12] DULoxetine HCL [Cymbalta] 30 mg PO BID 08/03/23 08/03/23 History Levothyroxine Sodium [Synthroid] 75 mcg PO DAILY 08/03/23 08/03/23 History Metoprolol Succinate (ER) [Toprol 25 mg PO DAILY 08/03/23 08/03/23 History Xl] Nitrofurantoin Monohyd/M-Cryst 100 mg PO Q12HR 5 Days #10 cap 08/03/23 Rx [Macrobid] Simvastatin [Zocor] 40 mg PO HS 08/03/23 08/03/23 History hydrALAZINE HCL [Apresoline] 50 mg PO TID@0800,1400,1800 08/03/23 08/03/23 History lisinopriL [Prinivil] 20 mg PO BID 08/03/23 08/03/23 History Allergies Allergy/AdvReac Type Severity Reaction Status Date / Time Penicillins Allergy Rash/Hives Verified 08/03/23 11:50 codeine AdvReac Nausea & Verified 08/03/23 11:50 Vomiting morphine AdvReac Nausea & Verified 08/03/23 11:50 Vomiting Sulfa (Sulfonamide AdvReac Swelling Verified 08/03/23 11:50 Antibiotics) Physical Exam Vitals: Vital Signs Temp Pulse Pulse Resp BP BP Pulse Ox 08/04/23 13:05 96 16 172/75 95 08/04/23 11:21 98.3 F 101 H 16 173/78 92 L 08/04/23 10:11 97 165/71 08/04/23 09:46 99.7 F H 102 H 16 181/75 94 L 08/04/23 06:44 140/66 08/04/23 03:36 90 16 183/83 92 L 08/04/23 00:00 101 H 16 185/97 93 L 08/03/23 21:20 175/77 08/03/23 20:35 98.1 F 89 16 199/93 96 08/03/23 19:42 88 18 191/101 98 08/03/23 18:04 91 16 181/87 97 08/03/23 17:32 84 18 199/91 96 08/03/23 15:12 81 16 185/88 08/03/23 14:00 80 18 212/97 97 08/03/23 13:30 78 18 212/92 98 Intake and Output 08/03/23 08/04/23 08/04/23 22:59 06:59 14:59 Intake Total 540 540 100 Balance 540 540 100 Intake: Oral 540 540 100 Other: Voiding Method Toilet Toilet Toilet # Voids 1 1 2 Results 08/03/23 12:07 08/03/23 12:07 Current Medications Generic Name Dose Route Start Last Admin Trade Name Freq PRN Reason Stop Dose Admin Acetaminophen 650 mg 08/03/23 14:11 08/04/23 13:12 Acetaminophen Tab 325 Mg Tab PO 650 mg Q6HR PRN Administration Mild Pain or Fever > 100.5 Amlodipine Besylate 5 mg 08/04/23 21:00 Amlodipine 5 Mg Tab PO HS [facility] Chlorthalidone 25 mg 08/04/23 12:00 08/04/23 11:54 Chlorthalidone 25 Mg Tab PO 25 mg DAILY JHONNY Administration Famotidine 20 mg 08/03/23 21:00 08/04/23 09:58 Famotidine 20 Mg Tab PO 20 mg BID JHONNY Administration Heparin Sodium (Porcine) 5,000 unit 08/04/23 21:00 Heparin Sodium,Porcine 5,000 Unit/Ml 1 Ml Vial SQ Q12HR JHONNY Acetaminophen 1,000 mg/ IV 100 mls @ 400 mls/hr 08/03/23 20:37 08/03/23 20:57 Solution IVPB 400 mls/hr Q8HR PRN Administration Breakthrough Pain Ketorolac Tromethamine 15 mg 08/03/23 19:05 08/04/23 09:57 Ketorolac 15 Mg/Ml 1 Ml Vial IVP 08/08/23 19:06 15 mg Q6HR PRN Administration campbell Lisinopril 40 mg 08/04/23 12:00 08/04/23 11:54 Lisinopril 20 Mg Tab PO 40 mg DAILY JHONNY Administration Lorazepam 0.5 mg 08/03/23 22:32 08/03/23 22:39 Lorazepam 2 Mg/Ml Inj IV 0.5 mg Q6HR PRN Administration Anxiety Naloxone HCl 0.2 mg 08/03/23 14:11 Naloxone 0.4 Mg/Ml 1 Ml Vial IV Q2M PRN Opioid Reversal Ondansetron HCl 4 mg 08/03/23 14:11 08/03/23 19:50 Ondansetron 4 Mg/2 Ml Vial IVP 4 mg Q8HR PRN Administration Nausea And Vomiting Intake and Output 08/03/23 08/04/23 08/04/23 22:59 06:59 14:59 Intake Total 540 540 100 Balance 540 540 100 Intake: Oral 540 540 100 Other: Voiding Method Toilet Toilet Toilet # Voids 1 1 2 08/03/23 12:07 08/03/23 12:07
[2023-08-04] MEDS: amLODIPine 5 MG TAB PO SCH (20:29)
[2023-08-04] MEDS: HEPARIN SODIUM,PORCINE 5,000 UNIT/ML 1 ML VIAL SQ SCH (20:29)
[2023-08-05 09:35] LABS: Basophils # (A) 0.1 k/uL (0-0.2); Basophils % (A) 1 %; Eosinophils # (A) 0.1 k/uL (0-0.7); Eosinophils % (A) 1 %; HCT 43.6 % (34.0-46.0); HGB 14.6 gm/dL (11.4-16.0); Lymphocytes # (A) 1.1 k/uL (1.0-4.8); Lymphocytes % (A) 14 %; MCHC 33.4 g/dL (31.0-37.0); MCV 92.8 fL (80.0-100.0); Mean Platelet Volume 7.3; Monocytes # (A) 0.4 k/uL (0-1.0); Monocytes % (A) 6 %; Neutrophils # (A) 5.8 k/uL (1.3-7.7); Neutrophils % (A) 76 %; Platelet Count 287 k/uL (150-450); RDW 12.6 % (11.5-15.5); WBC 7.6 k/uL (3.8-10.6)
[2023-08-05 10:08] LABS: African American GFR (CKD) 54 (>60 ml/min/1.73 sqM); Anion Gap 8 mmol/L; Blood Urea Nitrogen 16 mg/dL (7-17); Calcium 9.5 mg/dL (8.4-10.2); Carbon Dioxide 27 mmol/L (22-30); Chloride 104 mmol/L (98-107); Glucose 130 mg/dL (74-99); Non-African American GFR(CKD) 47 (>60 ml/min/1.73 sqM); Potassium 3.4 mmol/L (3.5-5.1); Sodium 139 mmol/L (137-145)
[2023-08-05] MEDS: POTASSIUM CHLORIDE ER 20 MEQ TAB.ER PO SCH (11:34)
[2023-08-05] MEDS ORDERED: POTASSIUM CHLORIDE ER 20 MEQ TAB.ER PO SCH (12:00)
--- NOTE | 2023-08-05 12:06 | P.PN ---
Subjective Progress Note Date: 08/05/23 This is Ethan Valenzuela NP, I'm dictating on behalf of Dr. Aranda's H&P and A&P. Patient was interviewed and examined. Patient is a pleasant 78-year-old female who came to the hospital with accelerated hypertension. Patient reports that her headache has improved significantly. She reports feeling a little spacey today, but otherwise denies chest pain, shortness of breath, heart palpitations, dizziness. Family is significantly concerned about the patient's blood pressure, however it was explained that her medications will take 1 to 2 weeks to have their full effect, and that her blood pressure is heading in the correct direction. GENERAL: Well-appearing, well-nourished and in no acute distress. NECK: Supple without JVD or thyromegaly. LUNGS: Breath sounds clear to auscultation bilaterally. Respiration equal and unlabored. No wheezes, rales or rhonchi. HEART: Regular rate and rhythm without murmurs, rubs or gallops. S1 and S2 heard. EXTREMITIES: Normal range of motion, no edema. No clubbing or cyanosis. Peripheral pulses intact and strong. VITALS: Temp 98.5, pulse 95, respirations 16, blood pressure 151/88, O2 saturation 95% on room air TELEMETRY: Sinus mechanism LABS: White count 7.6, hemoglobin 14.6, platelets 287, sodium 139, potassium 3.4, BUN 16, creatinine 1.13, calcium 9.5, cortisol 8.6 IMPRESSION: 1. Accelerated hypertension 2. Hyperlipidemia 3. Headache, likely secondary to hypertension. PLAN: Continue current medications as prescribed. Monitor patient overnight. If blood pressure stays relatively controlled, patient may be discharged tomorrow. Obtain renal artery Dopplers tomorrow morning prior to discharge. Objective - Vital Signs Vital signs: Vital Signs Temp 98.5 F 08/05/23 07:55 Pulse 95 08/05/23 07:55 Resp 16 08/05/23 07:55 BP 151/88 08/05/23 07:55 Pulse Ox 95 08/05/23 07:55 FiO2 Intake & Output 08/04/23 08/05/23 08/05/23 18:59 06:59 18:59 Intake Total 218 1080 222 Balance 218 1080 222 Intake: Oral 218 1080 222 Other: Voiding Method Toilet Toilet Toilet # Voids 2 1 1 - Labs CBC & Chem 7: 08/05/23 08:51 08/05/23 08:51
--- NOTE | 2023-08-05 12:44 | P.CNNES ---
History of Present Illness Consult date: 08/05/23 Reason for Consult: Severe headache History of Present Illness: The patient is a 78-year-old female who was seen in neurologic consultation on August 05, 2023, in collaboration with Alejandra Beasley, via teleneurology. History is obtained from the patient as well as review of the chart. Patient reports that she came into the emergency department because her blood pressure was elevated. She also reports having a "killer headache". In regards to the headache, the patient states she has never had a headache this severe before she reports that it was a throbbing pain, involving her entire head. She also noted blurring of vision. There was also associated nausea. There is no vomiting. The patient reports a history of of headaches but never this severe. Patient says she has had a head injury in the past and subsequently had frequent headaches. She does however state that she has not had a headache in a while. In addition to the headache, the patient felt as if she was having a little bit of difficulty with word finding and some slurring of her speech. She denies numbness tingling and weakness in her extremities. In the emergency department, patient's blood pressure was found to be markedly elevated at 212/97. CT scan of the brain was performed. There is no reported evidence of acute hemorrhage or infarct. According to review of the chart, the patient has recently been noting elevated blood pressures. She is however her primary care physician who changed some of her blood pressure medications, increasing doses. The patient's blood pressure continued to be elevated and so she came into the emergency department. Past Medical History Past Medical History: Hyperlipidemia, Hypertension, No Reported History, Thyroid Disorder History of Any Multi-Drug Resistant Organisms: None Reported Past Surgical History: Bladder Surgery, Cholecystectomy, Hysterectomy, Orthopedic Surgery Past Psychological History: Depression Smoking Status: Never smoker Past Alcohol Use History: Rare Past Drug Use History: None Reported Medications and Allergies Home Medications Medication Instructions Recorded Confirmed Type Aspirin 81 mg PO DAILY 08/03/23 08/03/23 History Cholecalciferol (Vitamin D3) 75 mcg PO DAILY 08/03/23 08/03/23 History [Vitamin D3 (3000 Iu)] Cyanocobalamin (Vitamin B-12) 1,000 mcg PO DAILY 08/03/23 08/03/23 History [Vitamin B-12] DULoxetine HCL [Cymbalta] 30 mg PO BID 08/03/23 08/03/23 History Levothyroxine Sodium [Synthroid] 75 mcg PO DAILY 08/03/23 08/03/23 History Metoprolol Succinate (ER) [Toprol 25 mg PO DAILY 08/03/23 08/03/23 History Xl] Nitrofurantoin Monohyd/M-Cryst 100 mg PO Q12HR 5 Days #10 cap 08/03/23 Rx [Macrobid] Simvastatin [Zocor] 40 mg PO HS 08/03/23 08/03/23 History hydrALAZINE HCL [Apresoline] 50 mg PO TID@0800,1400,1800 08/03/23 08/03/23 History lisinopriL [Prinivil] 20 mg PO BID 08/03/23 08/03/23 History Allergies Allergy/AdvReac Type Severity Reaction Status Date / Time Penicillins Allergy Rash/Hives Verified 08/03/23 11:50 codeine AdvReac Nausea & Verified 08/03/23 11:50 Vomiting morphine AdvReac Nausea & Verified 08/03/23 11:50 Vomiting Sulfa (Sulfonamide AdvReac Swelling Verified 08/03/23 11:50 Antibiotics) Physical Examination - Vital Signs Vital Signs: Vital Signs Temp Pulse Resp BP Pulse Ox 08/05/23 07:55 98.5 F 95 16 151/88 95 08/05/23 04:00 96 16 164/79 95 08/05/23 00:00 97 16 161/83 97 08/04/23 20:00 98.2 F 103 H 16 149/75 92 L 08/04/23 15:49 98.6 F 107 H 16 152/74 94 L 08/04/23 13:05 96 16 172/75 95 08/04/23 11:21 98.3 F 101 H 16 173/78 92 L Intake and Output 08/04/23 08/05/23 08/05/23 22:59 06:59 14:59 Intake Total 540 540 222 Balance 540 540 222 Intake: Oral 540 540 222 Other: Voiding Method Toilet Toilet Toilet # Voids 1 1 1 General: Patient is well-nourished, well-developed and in no acute distress HEENT: Head is atraumatic, normocephalic. Fundus not visualized. There is no scleral icterus. Mucous membranes are moist. There is no tenderness to temporal artery palpation Neck: Supple without carotid bruits Heart: Regular rate and rhythm Lungs: No shortness of breath or wheezing Extremities: Without edema Neurological examination Mental status: The patient is awake, alert and oriented x 3. Her speech is clear. There is no dysarthria or aphasia. Judgment and insight are intact. Cranial nerves: Pupils are equal at 2 mm, round and reactive to light. Visual jacobson are full to confrontation. Extraocular movements are intact. There is no nystagmus. Facial sensation is intact. There is no facial asymmetry. Hearing is diminished. Uvula and palate are midline. Shoulder shrug is symmet shamir. Tongue protrudes midline. Motor: Strength is 5/5 throughout, with the exception of right triceps and biceps at 4/5. Sensation: Grossly intact to light touch throughout. There is no extinction w ith double simultaneous stimulation. Coordination: [id number], rapid alternating movements and [id number] testing are intact. Deep tendon reflexes: 2+/4+ throughout Gait: Not assessed Results - Laboratory Findings CBC and BMP: 08/05/23 08:51 08/05/23 08:51 Abnormal Lab Findings: Abnormal Labs 08/03/23 08/05/23 12:07 08:51 Potassium 3.4 L Chloride 108 H BUN 18 H Creatinine 1.13 H Glucose 100 H 130 H - Diagnostic Findings Comments: CT scan of the brain images have been reviewed. I agree with the report. Assessment and Plan Assessment: 1. Severe cephalgia with markedly elevated blood pressure, likely headache is secondary to uncontrolled hypertension. CT scan of the brain reveals no evidence of cerebral infarct or hemorrhage. Today, the patient's headache is significantly improved with reduction of her blood pressure. Neurological examination is normal 2. Reported history of frequent headaches 3. Uncontrolled hypertension Plan: 1. No further neurologic intervention is needed at this time 2. Acetaminophen for current headache 3. Continue blood pressure control Time with Patient: Greater than 30 (57 minutes were spent caring for this patient today including, obtaining history, examining the patient, reviewing imaging, chart documentation, labs and creating this note)
--- NOTE | 2023-08-05 13:13 | P.PN ---
Subjective Progress Note Date: 08/05/23 * 78 years old female with past medical history of hypertension and hyperlipidemia Who presents because of severe headache for the last 2 to 3 days associated with uncontrolled high blood pressure. * Her headache is all over was very bad and severe on admission, currently feels better/10, no obvious precipitating or relieving factors * Patient has been told she has UTI but patient currently denies any urinary symptoms and feels like normal for her, no dysuria or change in frequency or urgency. * She denies smoking alcohol or illicit drugs. * On admission her blood pressure was elevated 212/97, currently 173/78. Temperature was 99.7. Heart rate was slightly elevated 101. * CBC, BMP and liver enzymes were reviewed and were unremarkable * TSH 2.0 * CT of the brain is negative for acute process * EKG showing sinus rhythm at [address]-T changes. * Patient currently on Norvasc 5 mg at bedside, chlorthalidone 25 mg daily, lisinopril 40 mg daily. She received 1 dose of nitrofurantoin that was stopped. She is getting Ativan as needed which might contribute to her drowsiness. * 08/05/23: Patient seen and evaluated bedside, patient says headache has improved blood pressure has improved as well will wait for neurology evaluation. CT head findings discussed with patient and daughter PHYSICAL EXAMINATION: GENERAL: The patient is alert and oriented x3, not in any acute distress. Well developed, well nourished. HEENT: Pupils are round and equally reacting to light. EOMI. No scleral icterus. No conjunctival pallor. Normocephalic, atraumatic. No pharyngeal erythema. No thyromegaly. CARDIOVASCULAR: S1 and S2 present. No murmurs, rubs, or gallops. PULMONARY: Chest is clear to auscultation, no wheezing or crackles. ABDOMEN: Soft, nontender, nondistended, normoactive bowel sounds. No palpable organomegaly. MUSCULOSKELETAL: No joint swelling or deformity. EXTREMITIES: No cyanosis, clubbing, or pedal edema. NEUROLOGICAL: Gross neurological examination did not reveal any focal deficits. SKIN: No rashes. Objective - Vital Signs Vital signs: Vital Signs Temp 98.5 F 08/05/23 07:55 Pulse 91 08/05/23 11:32 Resp 16 08/05/23 11:32 BP 164/79 08/05/23 11:32 Pulse Ox 95 08/05/23 11:32 FiO2 Intake & Output 08/04/23 08/05/23 08/05/23 18:59 06:59 18:59 Intake Total 218 1080 222 Balance 218 1080 222 Intake: Oral 218 1080 222 Other: Voiding Method Toilet Toilet Toilet # Voids 2 1 1 - Labs CBC & Chem 7: 08/05/23 08:51 08/05/23 08:51 Labs: Abnormal Lab Results - Last 24 Hours (Table) 08/05/23 Range/Units 08:51 Potassium 3.4 L (3.5-5.1) mmol/L Creatinine 1.13 H (0.52-1.04) mg/dL Glucose 130 H (74-99) mg/dL Assessment and Plan Assessment: Assessment and plan * Hypertensive urgency * Severe cephalalgia secondary to elevated blood pressure * Hypokalemia * In regards to accelerated blood pressure continue current medication regimen including amlodipine, chlorthalidone, lisinopril * Consultations obtained from neurology and cardiology, continue to monitor blood pressure * Renal artery duplex ordered * Potassium replaced
[2023-08-05] MEDS: NYSTATIN 100,000 UNIT/ML SUSP 500,000 UNIT/5 ML CUP PO SCH (13:44)
[2023-08-06] MEDS: LEVOTHYROXINE 75 MCG TAB PO SCH (06:33)
--- NOTE | 2023-08-06 08:53 | US ---
EXAMINATION TYPE: US renal artery duplex complet DATE OF EXAM: 08/06/2023 COMPARISON: NONE CLINICAL INDICATION: Female, 78 years old with history of Hypertension; HTN MEASUREMENTS: RENAL SIZE: Right Kidney: 9.7 x 4.5 x 4.0cm Left Kidney: 9.4 x 4.0 x 4.2cm Right Kidney: appears unremarkable as visualized Left Kidney: appears unremarkable as visualized Abd Aorta: unremarkable RESISTANCE INDEX Right: 0.63 Left: 0.65 RA/AO RATIO (< 3.5 ) Right: 2.7 Left: 1.8 RENAL ARTERY VELOCITY ( < 180 cm/s) Right: 267.6cm/s Left: 223.7cm/s Inventory Associate And Driver Notes: Technical limitations due to large amount of overlying bowel gas. Bilateral lo al artery velocities appear mildly increased IMPRESSION: 1. Mild elevation of the renal artery velocities with normal renal artery aortic ratio is. Mild renal artery narrowing should be considered.
[2023-08-06] MEDS: ASPIRIN 81 MG PO SCH (09:08)
[2023-08-06] MEDS: CHOLECALCIFEROL 25 MCG (1000 IU) TABLET PO SCH (09:08)
[2023-08-06] MEDS: amLODIPine 5 MG TAB PO SCH (09:08)
[2023-08-06] MEDS: FAMOTIDINE 20 MG TAB PO SCH (09:09)
[2023-08-06] MEDS: METOPROLOL SUCCINATE (ER) 25 MG TAB.ER.24H PO SCH (09:09)
[2023-08-06] MEDS: CYANOCOBALAMIN 500 MCG TAB PO SCH (09:09)
[2023-08-06] MEDS: hydrALAZINE HCL 50 MG TAB PO SCH (09:09)
[2023-08-06] MEDS: DULoxetine HCL 30 MG CAPSULE.DR PO SCH (09:09)
[2023-08-06 09:38] LABS: African American GFR (CKD) 58 (>60 ml/min/1.73 sqM); Anion Gap 9 mmol/L; Blood Urea Nitrogen 17 mg/dL (7-17); Calcium 10.2 mg/dL (8.4-10.2); Carbon Dioxide 30 mmol/L (22-30); Chloride 103 mmol/L (98-107); Glucose 124 mg/dL (74-99); Non-African American GFR(CKD) 51 (>60 ml/min/1.73 sqM); Potassium 3.9 mmol/L (3.5-5.1); Sodium 142 mmol/L (137-145)
--- NOTE | 2023-08-06 15:19 | P.PN ---
Subjective Progress Note Date: 08/06/23 Patient is a pleasant 78-year-old female who came to the hospital with accelerated hypertension. Patient reports that her headache has improved significantly. She reports feeling a little spacey today, but otherwise denies chest pain, shortness of breath, heart palpitations, dizziness. Family is significantly concerned about the patient's blood pressure, however it was explained that her medications will take 1 to 2 weeks to have their full effect, and that her blood pressure is heading in the correct direction. VITALS: Temp 98.5, pulse 95, respirations 16, blood pressure 151/88, O2 saturation 95% on room air TELEMETRY: Sinus mechanism LABS: White count 7.6, hemoglobin 14.6, platelets 287, sodium 139, potassium 3.4, BUN 16, creatinine 1.13, calcium 9.5, cortisol 8.6 08/06 Patient complains of headache this morning. Aldosterone level ordered and metanephrines still pending. Blood pressure 190/80. Dr. Wells has resume patient's home blood pressure medications. Repeat blood work reveals electrolytes are normal. BUN 17 creatinine 1.07. Renal artery duplex reveals mild elevation of the renal artery velocities with normal renal artery aortic ratio. Mild renal artery narrowing should be considered. GENERAL: Well-appearing, well-nourished and in no acute distress. NECK: Supple without JVD or thyromegaly. LUNGS: Breath sounds clear to auscultation bilaterally. Respiration equal and unlabored. No wheezes, rales or rhonchi. HEART: Regular rate and rhythm without murmurs, rubs or gallops. S1 and S2 heard. EXTREMITIES: Normal range of motion, no edema. No clubbing or cyanosis. Peripheral pulses intact and strong. IMPRESSION: Accelerated hypertension of recent onset Headache Hypertension history Hyperlipidemia PLAN: Continue current medications: Amlodipine 5 mg twice daily, chlorthalidone 25 mg daily, hydralazine 50 mg 3 times daily, lisinopril 40 mg daily, Toprol-XL 25 mg twice daily Also continue patient on aspirin 81 mg daily and atorvastatin 20 mg at bedtime. Continue to monitor blood pressure closely No medication changes made this morning as patient is been resumed this morning on her home antihypertensives. Once blood pressure is controlled, patient is cleared for discharge from cardiology Nurse practitioner note has been reviewed, I agree with documented findings and plan of care. Patient was seen and examined. Objective - Vital Signs Vital signs: Vital Signs Temp 98.0 F 08/06/23 09:02 Pulse 114 H 08/06/23 09:18 Resp 16 08/06/23 09:02 BP 152/76 08/06/23 09:02 Pulse Ox 98 08/06/23 09:02 FiO2 Intake & Output 08/05/23 08/06/23 08/06/23 18:59 06:59 18:59 Intake Total 580 Balance 580 Intake: Oral 580 Other: Voiding Method Toilet Toilet Toilet # Voids 1 1 - Labs CBC & Chem 7: 08/05/23 08:51 08/06/23 08:34 Labs: Abnormal Lab Results - Last 24 Hours (Table) 08/05/23 08/06/23 Range/Units 08:51 08:34 Potassium 3.4 L (3.5-5.1) mmol/L Creatinine 1.13 H 1.07 H (0.52-1.04) mg/dL Glucose 130 H 124 H (74-99) mg/dL
[2023-08-06] MEDS: ATORVASTATIN 20 MG TAB PO SCH (20:11)
--- NOTE | 2023-08-07 05:54 | P.PN ---
Subjective Progress Note Date: 08/06/23 HISTORY OF PRESENT ILLNESS: Patient is a pleasant 78-year-old female with a past medical history that includes hypertension, vitamin B12 deficiency, hyperlipidemia, and depression who presents to the hospital for complaints of hypertension. Patient and family report that the patient was recently seen by her primary care provider who increased her lisinopril and started her on oral hydralazine for increased blood pressures. Patient reports that at home she continued to check her blood pressures with little to no change, in fact states that her blood pressure continued to increase. She was experiencing headaches with no reports of blurry vision, near syncope, chest pain, shortness of breath, or leg swelling. Due to her continued elevated blood pressure she came to the hospital for evaluation. In the emergency department the patient was found to have significant elevated blood pressures in the 180s over 90s, with occasional 200/90. Patient was started on IV hydralazine and admitted to the hospital for further evaluation. Upon examination, the patient continues to report having a bad headache. She otherwise denies blurry vision, near syncope, chest pain, shortness of breath, leg swelling. 08/06/2023: Blood pressure still at 170/95 this morning despite using amlodipine 5, chlorthalidone 25 mg, lisinopril 40 mg daily. Will add hydralazine 50 mg s hould titrate amlodipine to 10 mg a day. Also patient can benefit from smaller dose of beta-lupis at home was on metoprolol which was not resumed in the hospital can resume either metoprolol or start carvedilol and space. Still having problem currently using clonidine patch TTS 2. REVIEW OF SYSTEMS: CONSTITUTIONAL: Well-developed no acute respiratory distress. EYES: No icterus sclerae, no conjunctivitis. EARS, NOSE, MOUTH, THROAT, and FACE: No sore throat, lymphadenopathy, carotid bruits or deformity. RESPIRATORY: No SOB cough or wheezes. CARDIOVASCULAR: No CP, Palpitation, PND, Orthopnea, or angina. GASTROINTESTINAL: No Abd pain, Nausea or vomiting, no Diarrhea or constipation, No GI Bleed, no distention or masses. GENITOURINARY: Negative for Hematuria or UTI, no kidney stones. INTEGUMENT/BREAST: Negative for any muscular injury with mild osteoarthritis.. HEMATOLOGIC/LYMPHATIC: Negative for bleed or purpura. MUSCULOSKELTAL: Negative for Myalgia or arthralgia. NEURLOGICAL: No LOC, Sz or syncope, blurred vision dizziness or abnormality.. BEHAVIORAL/PSYCH: Negative. ENDOCRINE: Negative. PHYSICAL EXAMINATION: General Appearance: Alert, cooperative, no distress, appears stated age. Neck HEENT: Supple, no lymphadenopathy, no thyroid enlargement, no carotid bruits. Lungs: Clear to auscultation without crackles or wheezes no rhonchi, no deformity. Chest Wall: Chest wall normal expansion with deep inspiration no tenderness and no deformity was found on exam, no costochondral pain or discomfort. Heart: Regular rate and rhythm, S1, S2 normal, no murmur, rub or gallop. Back: Symmetric, no curvature, ROM normal, no CVA tenderness. Abdomen: Soft, non-tender, bowel sounds active all four quadrants, no masses, no organomegaly. Extremities: Extremities normal, atraumatic, no cyanosis or edema. Pulses: 2+ and symmetric. Skin: Skin color, texture, tugor normal, no rashes or lesions. Neurologic: Alert oriented x3 cranial nerves II through XII intact, no motor deficit, no abnormal balance or gait. ASSESSMENT AND PLAN: _Severe headache: So far seeing cardiology and neurology no further testing needed with uncontrolled blood pressure hopefully with the care of the headache. _Accelerated hypertension: Blood pressure still not well-controlled should consider to add second amlodipine also hydralazine 50 mg every 6 hours for systolic above 150 or diastolic above 90 and should go back on metoprolol succinate 25 mg twice a day. _Acute kidney injury: Most likely from the severity of low blood pressure and possibly medication watch symptoms carefully repeat CMP again today. _Hyperglycemia: Hyperglycemia with no sign of diabetes patient to continue Accu- Chek. _Hypokalemia: Postplacement therapy potassium is much better. _Hypothyroidism: Remain on levothyroxine 75 mcg daily. _Hyperlipidemia: Continue simvastatin 40 mg a day. _Depression: Has been on duloxetine 30 mg twice a day resume medication before having any more anxiety attacks can add smaller dose of benzodiazepine like alprazolam 0.25 mg twice a day as needed. DVT prophylaxis: Still on heparin subcutaneous. GI prophylaxis continue Pepcid 20 mg daily. Objective - Vital Signs Vital signs: Vital Signs Temp 98.5 F 08/06/23 04:00 Pulse 85 08/06/23 04:00 Resp 16 08/06/23 04:00 BP 170/95 08/06/23 04:00 Pulse Ox 96 08/06/23 04:00 FiO2 Intake & Output 08/05/23 08/05/23 08/06/23 06:59 18:59 06:59 Intake Total 1080 580 Balance 1080 580 Intake: Oral 1080 580 Other: Voiding Method Toilet Toilet Toilet # Voids 1 1 1 - Labs CBC & Chem 7: 08/05/23 08:51 08/06/23 08:34 Labs: Abnormal Lab Results - Last 24 Hours (Table) 08/05/23 Range/Units 08:51 Potassium 3.4 L (3.5-5.1) mmol/L Creatinine 1.13 H (0.52-1.04) mg/dL Glucose 130 H (74-99) mg/dL
[2023-08-07 08:39] VITALS: BP 127/70; PULSE 88; RESP 15; TEMP 98
--- NOTE | 2023-08-07 13:54 | P.PN ---
Subjective Progress Note Date: 08/07/23 Patient is a pleasant 78-year-old female who came to the hospital with accelerated hypertension. Patient reports that her headache has improved significantly. She reports feeling a little spacey today, but otherwise denies chest pain, shortness of breath, heart palpitations, dizziness. Family is significantly concerned about the patient's blood pressure, however it was explained that her medications will take 1 to 2 weeks to have their full effect, and that her blood pressure is heading in the correct direction. VITALS: Temp 98.5, pulse 95, respirations 16, blood pressure 151/88, O2 saturation 95% on room air TELEMETRY: Sinus mechanism LABS: White count 7.6, hemoglobin 14.6, platelets 287, sodium 139, potassium 3.4, BUN 16, creatinine 1.13, calcium 9.5, cortisol 8.6 08/06 Patient complains of headache this morning. Aldosterone level ordered and metanephrines still pending. Blood pressure 190/80. Dr. Wells has resume patient's home blood pressure medications. Repeat blood work reveals electrolytes are normal. BUN 17 creatinine 1.07. Renal artery duplex reveals mild elevation of the renal artery velocities with normal renal artery aortic ratio. Mild renal artery narrowing should be considered. 08/07 BP readings are improved 127/45063/68. Heart rate is in the 70s and 80s, pulse ox 95% on room air. Patient has been prepared by Dr. Carson for discharge home this morning. GENERAL: Well-appearing, well-nourished and in no acute distress. NECK: Supple without JVD or thyromegaly. LUNGS: Breath sounds clear to auscultation bilaterally. Respiration equal and unlabored. No wheezes, rales or rhonchi. HEART: Regular rate and rhythm without murmurs, rubs or gallops. S1 and S2 heard. EXTREMITIES: Normal range of motion, no edema. No clubbing or cyanosis. Peripheral pulses intact and strong. IMPRESSION: Accelerated hypertension of recent onset Headache Hypertension history Hyperlipidemia PLAN: Continue current medications Patient may follow-up in the office in 1 to 2 weeks. Nurse practitioner note has been reviewed, I agree with documented findings and plan of care. Patient was seen and examined. Objective - Vital Signs Vital signs: Vital Signs Temp 98.0 F 08/07/23 08:33 Pulse 88 08/07/23 08:33 Resp 15 08/07/23 08:33 BP 127/70 08/07/23 08:33 Pulse Ox 95 08/07/23 08:33 FiO2 Intake & Output 08/06/23 08/07/23 08/07/23 18:59 06:59 18:59 Intake Total 1050 Balance 1050 Intake: Oral 1050 Other: Voiding Method Toilet Toilet Toilet # Voids 3 1 - Labs CBC & Chem 7: 08/05/23 08:51 08/06/23 08:34
--- NOTE | 2023-08-08 06:17 | P.DS ---
Providers Date of admission: 08/06/23 13:26 Attending physician: Ivan Menjivar Consults: 08/03/23 14:11 Consult Physician Stat Consulting Provider: Matt Wetzel Consult Reason/Comments: uncontrolled hypertension Do you want consulting provider notified?: Yes 08/04/23 13:11 Consult Physician Routine Consulting Provider: Chapis Sr Consult Reason/Comments: sever LONG Do you want consulting provider notified?: Yes Primary care physician: [facility] Course: HISTORY OF PRESENT ILLNESS: Patient is a pleasant 78-year-old female with a past medical history that includes hypertension, vitamin B12 deficiency, hyperlipidemia, and depression who presents to the hospital for complaints of hypertension. Patient and family report that the patient was recently seen by her primary care provider who increased her lisinopril and started her on oral hydralazine for increased blood pressures. Patient reports that at home she continued to check her blood pressures with little to no change, in fact states that her blood pressure continued to increase. She was experiencing headaches with no reports of blurry vision, near syncope, chest pain, shortness of breath, or leg swelling. Due to her continued elevated blood pressure she came to the hospital for evaluation. In the emergency department the patient was found to have significant elevated blood pressures in the 180s over 90s, with occasional 200/90. Patient was started on IV hydralazine and admitted to the hospital for further evaluation. Upon examination, the patient continues to report having a bad headache. She otherwise denies blurry vision, near syncope, chest pain, shortness of breath, leg swelling. 08/06/2023: Blood pressure still at 170/95 this morning despite using amlodipine 5, chlorthalidone 25 mg, lisinopril 40 mg daily. Will add hydralazine 50 mg should titrate amlodipine to 10 mg a day. Also patient can benefit from smaller dose of beta-lupis at home was on metoprolol which was not resumed in the hospital can resume either metoprolol or start carvedilol and space. Still having problem currently using clonidine patch TTS 2. 07/31: She is doing slightly better and her blood pressure is much better controlled, she is having slight photophobia and slight headache today but does not have any neck rigidity and no neuro symptoms. Most likely her symptoms are related to her blood pressure not being very controlled and having to be stressed out from being away from home for the last 3 days. Had long discussion with her and her family today agreed to keep the changes done with medication while she goes home and to follow-up for quick follow-up to see her PCP Dr. Conte and her hospital aides and assistants teacher Dr. Aranda within the next few days. REVIEW OF SYSTEMS: CONSTITUTIONAL: Well-developed no acute respiratory distress. EYES: No icterus sclerae, no conjunctivitis. EARS, NOSE, MOUTH, THROAT, and FACE: No sore throat, lymphadenopathy, carotid bruits or deformity. RESPIRATORY: No SOB cough or wheezes. CARDIOVASCULAR: No CP, Palpitation, PND, Orthopnea, or angina. GASTROINTESTINAL: No Abd pain, Nausea or vomiting, no Diarrhea or constipation, No GI Bleed, no distention or masses. GENITOURINARY: Negative for Hematuria or UTI, no kidney stones. INTEGUMENT/BREAST: Negative for any muscular injury with mild osteoarthritis.. HEMATOLOGIC/LYMPHATIC: Negative for bleed or purpura. MUSCULOSKELTAL: Negative for Myalgia or arthralgia. NEURLOGICAL: No LOC, Sz or syncope, blurred vision dizziness or abnormality.. BEHAVIORAL/PSYCH: Negative. ENDOCRINE: Negative. PHYSICAL EXAMINATION: General Appearance: Alert, cooperative, no distress, appears stated age. Neck HEENT: Supple, no lymphadenopathy, no thyroid enlargement, no carotid bruits. Lungs: Clear to auscultation without crackles or wheezes no rhonchi, no deformity. Chest Wall: Chest wall normal expansion with deep inspiration no tenderness and no deformity was found on exam, no costochondral pain or discomfort. Heart: Regular rate and rhythm, S1, S2 normal, no murmur, rub or gallop. Back: Symmetric, no curvature, ROM normal, no CVA tenderness. Abdomen: Soft, non-tender, bowel sounds active all four quadrants, no masses, no organomegaly. Extremities: Extremities normal, atraumatic, no cyanosis or edema. Pulses: 2+ and symmetric. Skin: Skin color, texture, tugor normal, no rashes or lesions. Neurologic: Alert oriented x3 cranial nerves II through XII intact, no motor deficit, no abnormal balance or gait. ASSESSMENT AND PLAN: _Severe headache: So far seeing cardiology and neurology no further testing needed with uncontrolled blood pressure hopefully with the care of the headache. _Accelerated hypertension: Much better so far with combination of amlodipine 5 mg twice a day, chlorthalidone 25 mg daily, metoprolol succinate 25 mg twice a day, hydralazine 50 mg 3 times a day and lisinopril 20 mg twice a day which seem to control her blood pressure under 150 systolic and under 90 diastolic. Patient to be going home on this regimen for now further adjustment as needed medication can be given one of the idea is to use hydralazine on as-needed basis every 6 hours for systolic above 150 or diastolic above 88. _Acute kidney injury: Most likely from the severity of low blood pressure and possibly medication side effect symptoms improved her level looks much better so far before discharge. _Hyperglycemia: Hyperglycemia with no sign of diabetes patient to continue Accu- Chek. _Hypokalemia: Postplacement therapy potassium is much better. _Hypothyroidism: Remain on levothyroxine 75 mcg daily. _Hyperlipidemia: Continue simvastatin 40 mg a day. _Depression: Has been on duloxetine 30 mg twice a day resume medication before having any more anxiety attacks can add smaller dose of benzodiazepine like alprazolam 0.25 mg twice a day as needed. DVT prophylaxis: Still on heparin subcutaneous. GI prophylaxis continue Pepcid 20 mg daily. Hospital course: Patient was hospitalized with severe headache and accelerated blood pressure with seen neurology the following day review CAT scan and testing came back negative did not see the need to do any further neuro medication or management. Seen cardiology as well and seen our service her blood pressure medication and start being adjusted gradually till we reach level of satisfaction with her current regimen that patient felt slightly better on it. Ended up having renal artery ultrasound did not show any sign of stenosis or blockage. Also she had acute kidney injury initially most likely from the severity of her symptoms it had resolved and improved significantly over the following few days. Patient was stable for discharge today 08/07/2023. Will be follow-up with her primary care in 2 days. Time spent on discharge and patient was over 35 minutes. Patient Condition at Discharge: Fair Plan - Discharge Summary Discharge Rx Participant: Yes New Discharge Prescriptions: New Nitrofurantoin Monohyd/M-Cryst [Macrobid] 100 mg PO Q12HR 5 Days #10 cap Chlorthalidone [Hygroton] 25 mg PO DAILY #30 tab Famotidine [Pepcid] 20 mg PO DAILY #30 tab Nystatin 100,000 Unit/ml Susp [Mycostatin Oral Susp] 500,000 unit PO QID #250 ml amLODIPine [Norvasc] 5 mg PO BID #60 tab Continue Cholecalciferol (Vitamin D3) [Vitamin D3 (3000 Iu)] 75 mcg PO DAILY lisinopriL [Prinivil] 20 mg PO BID Aspirin 81 mg PO DAILY Levothyroxine Sodium [Synthroid] 75 mcg PO DAILY Cyanocobalamin (Vitamin B-12) [Vitamin B-12] 1,000 mcg PO DAILY hydrALAZINE HCL [Apresoline] 50 mg PO TID@0800,1400,1800 Simvastatin [Zocor] 40 mg PO HS DULoxetine HCL [Cymbalta] 30 mg PO BID Changed Metoprolol Succinate (ER) [Toprol XL] 25 mg PO BID #0 Discharge Medication List Aspirin 81 mg PO DAILY 08/03/23 [History] Cholecalciferol (Vitamin D3) [Vitamin D3 (3000 Iu)] 75 mcg PO DAILY 08/03/23 [History] Cyanocobalamin (Vitamin B-12) [Vitamin B-12] 1,000 mcg PO DAILY 08/03/23 [History] DULoxetine HCL [Cymbalta] 30 mg PO BID 08/03/23 [History] Levothyroxine Sodium [Synthroid] 75 mcg PO DAILY 08/03/23 [History] Nitrofurantoin Monohyd/M-Cryst [Macrobid] 100 mg PO Q12HR 5 Days #10 cap 08/03/23 [Rx] Simvastatin [Zocor] 40 mg PO HS 08/03/23 [History] hydrALAZINE HCL [Apresoline] 50 mg PO TID@0800,1400,1800 08/03/23 [History] lisinopriL [Prinivil] 20 mg PO BID 08/03/23 [History] Chlorthalidone [Hygroton] 25 mg PO DAILY #30 tab 08/07/23 [Rx] Famotidine [Pepcid] 20 mg PO DAILY #30 tab 08/07/23 [Rx] Metoprolol Succinate (ER) [Toprol XL] 25 mg PO BID #0 08/07/23 [Rx] Nystatin 100,000 Unit/ml Susp [Mycostatin Oral Susp] 500,000 unit PO QID #250 ml 08/07/23 [Rx] amLODIPine [Norvasc] 5 mg PO BID #60 tab 08/07/23 [Rx] Follow up Appointment(s)/Referral(s): Dereje Aranda MD [STAFF PHYSICIAN] - 10 Days (Please call r or sunday to schedule hopsital follow up. Cardiology's computer system is down. ) Virginie Conte MD [Primary Care Provider] - 08/09/23 8:30 am (Arrive a couple of minutes early. Apt is with Dr. Conte. ) Patient Instructions/Handouts: Hypertension (DC) Activity/Diet/Wound Care/Special Instructions: Please continue taking prescribed medications. Follow-up with PCP on Sunday08/07/23 as scheduled. Complete full course of antibiotics. Return to the ER for any new or worsening symptoms Discharge Disposition: HOME SELF-CARE
== END 2023-08-07 11:22 | disposition home or self-care (01) | DRG 305 ==
LOC: EC 09:54 → 3SCARD 13:21 → OBSVTOIN 08-06 13:26
PROVIDERS: ADMIT Internal Medicine Geriatric Medicine; ATTEND Internal Medicine Geriatric Medicine
DX: I16.0 Hypertensive urgency (principal); N17.9 Acute kidney failure, unspecified; I10 Essential (primary) hypertension; F41.1 Generalized anxiety disorder; F32.A Depression, unspecified; E78.5 Hyperlipidemia, unspecified; E87.6 Hypokalemia; E53.8 Deficiency of other specified B group vitamins; E03.9 Hypothyroidism, unspecified; Z79.890 Hormone replacement therapy; R51.9 Headache, unspecified; R73.9 Hyperglycemia, unspecified; Z79.899 Other long term (current) drug therapy; Z79.82 Long term (current) use of aspirin; Z87.828 Personal history of other (healed) physical injury and trauma; Z90.710 Acquired absence of both cervix and uterus; Z90.49 Acquired absence of other specified parts of digestive tract; Z88.0 Allergy status to penicillin; Z88.2 Allergy status to sulfonamides; Z88.5 Allergy status to narcotic agent
CPT/HCPCS: 36415; 70450; 80048; 80053; 82088; 82533; 83835; 84443; 85025; 85027; 93005; 93975; 96374; 96375; 96376; 99285